=== PATIENT | male | born 1985 | race American Indian/Alaskan Native ===

== ENCOUNTER 2022-07-27 02:03 | Emergency (ER) | payer MEDICARE ==
[2022-07-27 02:29] VITALS: BP 138/84
--- NOTE | 2022-07-27 02:32 | Emergency Department Report ---
ED General Adult HPI - General Stated complaint: COLD SYMPTOMS PUI?: No Time Seen by Provider: 07/27/22 02:27 Source: EMS - History of Present Illness Initial comments: The following is obtained from the EMS. Apparently the patient got into altercation/argument with the TECHNOLOGY TRAINER and they called the police. When the police got there, the patient was sleeping. The nursing staff got on the phone with the facility provider and states patient have cold symptoms and got provider to agree with them to bring the patient to the ER. While leaving, the staff said to EMS that "We are sick and tired of him and this will teach him a lesson" - this was per EMS sign out to me. EMS states patient is calm and cooperative with no complaints. I have spoke to the patient myself and patient states he has lupus scleroderma and he can hardly walk which is his baseline. He uses oxygen and breathing treatment and he asked the nursing program director that he would like breathing treatment but felt asleep and the next thing he knows, the police and EMS was at bedside. Patient states he feels they are treating with poorly but he is okay with it. States he would like to go home and doesn't have any medical compl aints. Denies any discomfort. - Related Data Allergies Allergy/AdvReac Type Severity Reaction Status Date / Time No Known Allergies Allergy Unverified 07/27/22 02:29 ED Review of Systems ROS: Stated complaint: COLD SYMPTOMS Other details as noted in HPI Comment: All other systems reviewed and negative Constitutional: no symptoms reported, see HPI Eyes: as per HPI ENT: as per HPI Respiratory: no symptoms reported Cardiovascular: as per HPI Endocrine: no symptoms reported, see HPI Gastrointestinal: as per HPI Genitourinary: as per HPI Musculoskeletal: as per HPI Skin: as per HPI Neurological: as per HPI Psychiatric: as per HPI Hematological/Lymphatic: as per HPI ED Past Medical Hx - Past Medical History Previous Medical History?: Yes ED Physical Exam - General Limitations: No Limitations General appearance: alert, in no apparent distress (pleasant ) - Head Head exam: Present: atraumatic, normocephalic, normal inspection - Eye Eye exam: Present: normal appearance, PERRL, EOMI Pupils: Present: normal accommodation - ENT ENT exam: Present: normal exam, mucous membranes moist - Neck Neck exam: Present: normal inspection, full ROM - Respiratory Respiratory exam: Present: normal lung sounds bilaterally - Cardiovascular Cardiovascular Exam: Present: regular rate, normal rhythm, normal heart sounds - GI/Abdominal GI/Abdominal exam: Present: soft - Neurological Exam Neurological exam: Present: alert, oriented X3, CN II-XII intact - Psychiatric Psychiatric exam: Present: normal affect, normal mood. Absent: depressed, agitated, anxious, flat affect, manic, homicidal ideation, suicidal ideation ED Course Vital Signs 07/27/22 02:27 Temperature 97.7 F Pulse Rate 74 Respiratory 16 Rate Blood Pressure 138/84 [Right] O2 Sat by Pulse 99 Oximetry Critical care attestation.: If time is entered above; I have spent that time in minutes in the direct care of this critically ill patient, excluding procedure time. ED Disposition Clinical Impression: Patient denies medical problems Disposition: [facility] Is pt being admited?: No Does the pt Need Aspirin: No Condition: Stable Time of Disposition: 02:46
[2022-07-27] MEDS ORDERED: MIDAZOLAM 5 MG/5 ML INJ MDV IV ONE (09:02)
== END 2022-07-27 10:09 ==
LOC: ED 02:03
DX: Z91.19 Patient's noncompliance with other medical treatment and regimen (principal)
CPT/HCPCS: 99283; J2250